=== PATIENT | male | born 1985 | race Caucasian/White ===

== ENCOUNTER 2023-01-26 01:37 | Day surgery (SDC) | payer OTHER, SELFPAY ==
[2023-01-13 13:15] VITALS: BMI 29.2
--- NOTE | 2023-01-22 10:37 | SUR.PREOP ---
Patient called regarding upcoming procedure. Reviewed preop instructions, appointment times, and procedure prep.
[2023-01-26 12:56] VITALS: BP 133/84; PULSE 97; RESP 18; TEMP 36.4; O2SAT 99
[2023-01-26] MEDS: LACTATED RINGERS 1,000 ML 150 ML IV CONT (13:03)
--- NOTE | 2023-01-26 13:35 | WPDANESEPPF ---
Anes - Initial Pre Proc Eval Procedure: Operation Date: 01/26/23 14:30 Proposed Procedures p Flexible Sigmoidoscopy - Juwan Juarez MD s [facility] Hemorrhoid Treatment - Juwan Juarez MD Date/Time: 01/26/23 13:35 Surgeon: Juwan Juarez MD Pre Op Diagnosis: Hemorrhage of anus and rectum Patient Data Age: 37 Gender: M Height: 1.83 m Weight: 98.6 kg Last Vital Signs Temp 97.6 F 01/26/23 12:56 Pulse 97 01/26/23 12:56 Resp 18 01/26/23 12:56 BP 133/84 01/26/23 12:56 Pulse Ox 99 01/26/23 12:56 O2 Del Method Room Air 01/26/23 12:56 Allergies Allergy/AdvReac Type Severity Reaction Status Date / Time No Known Allergies Allergy Mild Verified 01/26/23 12:54 Home Medications Medication Instructions Recorded Confirmed Type calcium carbonate 500 mg calcium 500 mg PO BID 11/05/22 01/13/23 History (1,250 mg) chewable tablet (Calcium 500) cyclobenzaprine 5 mg tablet 5 mg PO TID PRN Spasms 11/05/22 01/13/23 History hydrocodone 7.5 mg-acetaminophen 1 tablet PO TID 01/13/23 01/13/23 History 325 mg tablet Patient hx anesthesia problems: none Family hx anesthesia problems: none Results Review: All pre-operative results and documents have been reviewed as part of the pre-operative evaluation. PMFSH Past Medical History Medical History BRBPR (bright red blood per rectum) Social History Social History (System 10/19/22 @ 14:17 by Nelly Hunter) Smoking status: Current every day smoker Tobacco type: e-cigarettes/vaping Substance use type: does not use Anes - Eval Final PreProcedure Day of Procedure 01/26/23 13:35 Patient weight: normal Heart: regular rate and rhythm Lungs: clear to auscultation Airway: Mallampati scale class II Neurological: alert and oriented Last oral intake: >/= 8 hours ASA classification: II Emergent: no Anesthetic plan: proceed Anesthesia type and monitoring: general GIVS and standard monitoring Results Review: All pre-operative results and documents have been reviewed as part of the pre-operative evaluation. Informed Consent: The patient's anesthetic plan and its attendant risks and benefits were discussed with the patient/family/POA. Questions were solicited and answers provided to the satisfaction of the patient/family/POA.
--- NOTE | 2023-01-26 14:10 | PM.HPGS ---
History of Present Illness History of Present Illness Consent: Risks, benefits, and alternatives have been discussed and questions answered. Patient agrees to proceed with procedure. Chief complaint: Hemorrhage of anus and rectum Narrative: Jabari Mustafa is a 37 year old male with intermittent rectal bleeding and hemorrhoids, had colonoscopy at 18 yo because gi issues Review of Systems Constitutional: Constitutional: Denies headache(s) and Denies weakness Eyes: Eyes: Denies blurry vision ENT: Reports Normal hearing present and Denies headache(s) Cardiovascular: Cardiovascular: Denies chest pain and Denies dyspnea Respiratory: Respiratory: Denies dyspnea Gastrointestinal: Gastrointestinal: Reports no additional gastrointestinal complaints Genitourinary: Genitourinary: Denies dysuria Musculoskeletal: Musculoskeletal: Reports back pain Integumentary/Breasts: Skin/Breast: Denies dry skin Neurologic: Reports Normal hearing present, Denies headache(s) and Denies weakness Psychiatric: Psychiatric: Denies anxiety Endocrine: Endocrine: Denies change in body appearance Hematologic/Lymphatic: Hematologic/Lymphatic: Denies easy bleeding Allergic/Immunologic: Allergic/Immunologic: Denies urticaria PMFSH Past Medical History Medical History (Updated 01/26/23 @ 14:12 by Juwan Juarez MD) BRBPR (bright red blood per rectum) Hemorrhoid Social History Social History (System 10/19/22 @ 14:17 by Nelly Hunter) Smoking status: Current every day smoker Tobacco type: e-cigarettes/vaping Substance use type: does not use Meds Home Medications and Allergies Home Medications Medication Instructions Recorded Confirmed Type calcium carbonate 500 mg calcium 500 mg PO BID 11/05/22 01/13/23 History (1,250 mg) chewable tablet (Calcium 500) cyclobenzaprine 5 mg tablet 5 mg PO TID PRN Spasms 11/05/22 01/13/23 History hydrocodone 7.5 mg-acetaminophen 1 tablet PO TID 01/13/23 01/13/23 History 325 mg tablet Allergies Allergy/AdvReac Type Severity Reaction Status Date / Time No Known Allergies Allergy Mild Verified 01/26/23 12:54 Vital Signs Vital Signs - 24 hr 01/26/23 12:56 Temperature 97.6 F Pulse Rate 97 Respiratory Rate 18 Blood Pressure 133/84 Pulse Oximetry 99 Oxygen Delivery Room Air Exam Const: General: comfortable and no acute distress HENMT: Face/Nose/Sinus: Normal nares present Eyes: General: appearance normal, both eyes and all related structures Neck: Neck: no JVD Resp: Auscultation: clear to auscultation bilaterally Cardio: Rate: regular rate Rhythm: regular rhythm GI: Inspection: non-distended GI Palp: Yes Soft to palpation Skin: General skin exam: normal color Neuro: General: patient oriented x3 Speech: normal speech Extrem: General: normal to inspection Psych: Mental Status: mental status grossly normal Assessment and Plan Assessment and plan (1) BRBPR (bright red blood per rectum): Code(s): K62.5 - Hemorrhage of anus and rectum Status: Acute Assessment and Plan: sigmoidoscopy (2) Hemorrhoid: Code(s): K64.9 - Unspecified hemorrhoids Status: Acute Assessment and Plan: if internal hemorrhoids then will treat with IRC
--- NOTE | 2023-01-26 14:23 | W.PM.PROC2 ---
Procedure Note - Detailed Date of Procedure 01/26/23 Pre-op Diagnosis Hemorrhage of anus and rectum Post-op Diagnosis Same Procedure Performed IRC of internal hemorrhoids Surgeon Juwan Juarez MD Anesthesia MAC (also had sigmoidoscopy) Findings internal hemorrhoids, non-bleeding Description of Procedure no anal fissure, normal anal tone. Then introduced anoscopy and found small grade II internal hemorrhoids, then advanced IRC probe and hemorrhoid treated at 1.5 seconds x6
[2023-01-26 14:26] VITALS: BP 114/79; PULSE 80; RESP 13; O2SAT 98
[2023-01-26 14:36] VITALS: BP 120/80; PULSE 78; RESP 13; O2SAT 98
[2023-01-26 14:46] VITALS: BP 134/78; PULSE 76; RESP 14; O2SAT 98
== END 2023-01-26 14:57 | disposition home or self-care (01) ==
PROVIDERS: PCP Family Medicine; Visit Provider Internal Medicine Gastroenterology
PROC: 0DJD8ZZ Inspection of Lower Intestinal Tract, Via Natural or Artificial Opening Endoscopic (ICD-10-PCS; CPT 45330; principal; 2023-01-26 14:30)
PROC: (CPT 46930; 2023-01-26 14:30)
DX: K64.1 Second degree hemorrhoids (principal); F17.290 Nicotine dependence, other tobacco product, uncomplicated
CPT/HCPCS: 46930; 45330; J2704; J7120